=== PATIENT | female | born 1950 | race Caucasian/White ===

== ENCOUNTER 2019-11-12 18:37 | Observation (INO) | payer MEDICARE ==
[~2019-11-12] VITALS: Ht 152.4 cm; Wt 84.5 kg
[2019-11-12 18:42] VITALS: Ht 152.4 cm; Wt 84.5 kg
--- NOTE | 2019-11-12 18:54 | NUR ---
PT ARRIVED BY EMS WITHOUT A C-COLLAR. EMS STATES THAT PT REFUSED TO WEAR ONE.
--- NOTE | 2019-11-12 19:15 | NUR ---
PLACED C-COLLAR ON PT
--- NOTE | 2019-11-12 19:18 | NUR ---
STATES SHE CAUGHT HER FOOT ON SOMETHING AND FALL OFF THE WALL. PT DID NOT HAVE LOC
--- NOTE | 2019-11-12 19:19 | NUR ---
IS AT BEDSIDE
--- NOTE | 2019-11-12 19:25 | NUR ---
BLOOD TO LAB
[2019-11-12 19:29] LABS: BASOPHILS 0.2 % (0-2); EOSINOPHILS 1.7 % (0-7); HEMATOCRIT 40.6 % (36.0-48.0); HEMOGLOBIN 13.4 g/dL (12-16); IMMATURE GRANULOCYTES 0.2 % (0-5); LYMPHOCYTES 16.6 % (15-50); MCH 30.5 pg (26.0-34.0); MCV 92.3 fL (80.0-100.0); MEAN PLATELET VOLUME 9.1 fL (7.4-10.4); MONOCYTES 4.2 % (2-11); NEUTROPHILS 77.1 % (40-80); PLATELET COUNT 315 10x3/uL (130-400); RDW 13.1 % (11.5-14.5); WBC 12.1 10x3/uL (4.8-10.8)
[2019-11-12 19:51] LABS: APTT 24.4 SECONDS (22.8-39.4); INR 0.93 (0.85-1.17); PROTIME 12.4 SECONDS (11.6-15.0)
[2019-11-12 19:55] LABS: CALC OSMOLALITY 281 mosm/kg (275-300); CARBON DIOXIDE 26.6 mmol/L (21.0-32.0); CHLORIDE - SERUM 102 mmol/L (98-107); CREATININE - SERUM 0.7 mg/dL (0.6-1.3); GLUCOSE 242 mg/dL (74-106); POTASSIUM - SERUM 3.7 mmol/L (3.5-5.1); SODIUM 138 mmol/L (136-145); UREA NITROGEN 6 mg/dL (7-18); eGFR NON AFRICAN AMERICAN 88 mL/min (90-120)
[2019-11-12 20:06] LABS: ALBUMIN 3.8 g/dL (3.4-5.0); ALKALINE PHOSPHATASE 92 U/L (30-120); ALT (SGPT) 14 U/L (10-68); BILIRUBIN - TOTAL 0.41 mg/dL (0.2-1.3); CKMB 1.9 U/L (0.0-3.6); CREATINE KINASE 127 UL (21-215); PROTEIN - SERUM 7.1 g/dL (6.4-8.2)
[2019-11-12 20:09] LABS: TROPONIN-I < 0.017 ng/mL (0.000-0.060)
--- NOTE | 2019-11-12 21:30 | NUR ---
URINE TO LAB
[2019-11-12 21:51] LABS: BILIRUBIN NEGATIVE (NEGATIVE); KETONE MODERATE mg/dL (NEGATIVE); NITRITE NEGATIVE (NEGATIVE); UROBILINOGEN NORMAL mg/dL (< 2)
[2019-11-12 21:52] LABS: BACTERIA FEW HPF (NONE SEEN); EPITHELIAL CELLS 0-5 /hpf (0-5)
[2019-11-12 22:31] VITALS: BP 170/83
--- NOTE | 2019-11-12 23:13 | NUR ---
REPORT TO ELAINE JARQUIN ON SHIFT CHANGE
[2019-11-13 01:00] VITALS: BP 168/80
[2019-11-13 04:00] VITALS: BP 133/60
[2019-11-13 05:44] LABS: BASOPHILS 0.3 % (0-2); EOSINOPHILS 0.1 % (0-7); HEMATOCRIT 39.1 % (36.0-48.0); HEMOGLOBIN 12.7 g/dL (12-16); IMMATURE GRANULOCYTES 0.3 % (0-5); MCHC 32.5 g/dL (31.0-37.0); MCV 92.2 fL (80.0-100.0); MEAN PLATELET VOLUME 9.2 fL (7.4-10.4); MONOCYTES 6.2 % (2-11); NEUTROPHILS 79.1 % (40-80); PLATELET COUNT 334 10x3/uL (130-400); RBC 4.24 10x6/uL (4.00-5.40); RDW 13.1 % (11.5-14.5); WBC 10.1 10x3/uL (4.8-10.8)
[2019-11-13 06:31] LABS: ALBUMIN 3.6 g/dL (3.4-5.0); ALKALINE PHOSPHATASE 87 U/L (30-120); ALT (SGPT) 12 U/L (10-68); BILIRUBIN - TOTAL 0.36 mg/dL (0.2-1.3); CALC OSMOLALITY 278 mosm/kg (275-300); CALCIUM 8.6 mg/dL (8.5-10.1); CARBON DIOXIDE 27.7 mmol/L (21.0-32.0); CHLORIDE - SERUM 100 mmol/L (98-107); CKMB 2.8 U/L (0.0-3.6); CREATININE - SERUM 0.8 mg/dL (0.6-1.3); GLUCOSE 264 mg/dL (74-106); POTASSIUM - SERUM 3.9 mmol/L (3.5-5.1); PROTEIN - SERUM 7.1 g/dL (6.4-8.2); SODIUM 136 mmol/L (136-145); TROPONIN-I < 0.017 ng/mL (0.000-0.060); UREA NITROGEN 7 mg/dL (7-18); eGFR NON AFRICAN AMERICAN 76 mL/min (90-120)
[2019-11-13 06:34] LABS: CREATINE KINASE 262 UL (21-215)
[2019-11-13 07:00] VITALS: BP 138/61
--- NOTE | 2019-11-13 07:02 | NUR ---
bedside gluclose 222
--- NOTE | 2019-11-13 08:30 | NUR ---
NAD. AAOX4, DERM PINK, WARM AND DRY. RESP EVEN, UNLABORED AT REST. HR RRR. PT REPORTS RIB PAIN 3/10 AT REST, WORSE WITH MOVEMENT. BREAKFAST TRAY PROVIDED TO PATIENT, CL IN REACH. DENIED FURTHER NEEDS AT THIS TIME.
[2019-11-13 08:45] VITALS: BP 130/71
[2019-11-13] MEDS ORDERED: CIPRO250 MG PO (11:23)
[2019-11-13] MEDS ORDERED: HYDROCODON-ACE1 EA10 PO (11:23)
[2019-11-13 12:30] VITALS: BP 127/53
== END 2019-11-13 13:52 | disposition home or self-care (01) ==
LOC: D.ER 18:37 → D.EDHOLD 23:29 → OBSVTIME 23:29 → D.EDHOLD 11-13 13:52
PROVIDERS: Family Medicine; ADMIT Family Medicine; ATTEND Family Medicine
DX: R55 Syncope and collapse (principal); S22.42XA Multiple fractures of ribs, left side, initial encounter for closed fracture; E78.5 Hyperlipidemia, unspecified; F41.8 Other specified anxiety disorders; M19.90 Unspecified osteoarthritis, unspecified site; K21.9 Gastro-esophageal reflux disease without esophagitis; N39.0 Urinary tract infection, site not specified; W19.XXXA Unspecified fall, initial encounter; Y93.9 Activity, unspecified; Y92.9 Unspecified place or not applicable; E11.9 Type 2 diabetes mellitus without complications; E03.9 Hypothyroidism, unspecified